=== PATIENT | male | born 1990 ===

== ENCOUNTER → 2025-08-26 09:13 | Outpatient (BNVA) | payer OTHER, SELFPAY | PROVIDERS: Visit Provider Podiatrist Foot & Ankle Surgery | DX: M19.172 Post-traumatic osteoarthritis, left ankle and foot (principal); Q78.8 Other specified osteochondrodysplasias | CPT/HCPCS: 73610; 73630; 99204 ==

== ENCOUNTER 2025-09-17 08:55 | Outpatient (CLI) | payer OTHER, SELFPAY ==
--- NOTE | 2025-09-17 09:15 | USCV_ITS ---
BowerTristen cheng Age: 35 Gender: M : 1990 Exam Date: 09/17/2025 09:42 Ordering Phys: Ramon Hoskins MD Technologist: DANUTA Exam Location: [facility] [place] Indication: heart murmur BP: 138 / 88 HR: 57 Rhythm: Sinus Technical Quality: Adequate MEASUREMENTS (Male / Female) Normal Values 2D ECHO LV Diastolic Diameter PLAX 4.3 cm 4.2 - 5.9 / 3.9 - 5.3 cm IVS Diastolic Thickness 0.6 cm 0.6 - 1.0 / 0.6 - 0.9 cm IVS Systolic Thickness 1.1 cm LVPW Diastolic Thickness 0.5 cm 0.6 - 1.0 / 0.6 - 0.9 cm LVPW Systolic Thickness 1.6 cm LVOT Diameter 2.1 cm LV Ejection Fraction 2D Teich 74.5 % LV Ejection Fraction MOD 4C 73.8 % LV Ejection Fraction MOD 2C 71.8 % LV Ejection Fraction 2C AL 72.3 % LA Diameter 4.0 cm RA Systolic Volume 4C AL 46.7 ml RA Systolic Volume 4C MOD 45.5 ml LA Sys Volume AL 65.3 cm cubed LA Sys Volume Index AL 25.8 cm cubed/m squared Aorta at Sinotubular Diameter 2.4 cm IVC Diameter 1.8 cm M-MODE LA Ao Ratio MM 1.6 AV Cusp Separation MM 2.1 cm DOPPLER AV Peak Velocity 143.0 cm/s LVOT Peak Velocity 89.0 cm/s AV Area Cont Eq vti 2.6 cm squared AV Area Cont Eq pk 2.2 cm squared MV Peak Velocity 102.0 cm/s MV Area PHT 4.3 cm squared Mitral E to A Ratio 1.5 TR Peak Velocity 305.0 cm/s TR Peak Gradient 37.2 mmHg TR Mean Velocity 227.0 cm/s TR Mean Gradient 22.5 mmHg TR Velocity Time Integral 80.2 cm PV Peak Velocity 140.0 cm/s RV Ejection Time 0.4 s FINDINGS Left Ventricle Normal left ventricular size, systolic function and wall thickness with no regional wall motion abnormality. Left ventricular ejection fraction is 72%. Normal left ventricular diastolic function. Right Ventricle Normal right ventricular size and systolic function. Right Atrium Normal right atrial size. Left Atrium Normal left atrial size. IA Septum Normal appearance of the interatrial septum. Mitral Valve Normal mitral valve structure. No mitral valve stenosis or regurgitation. Aortic Valve Normal aortic valve structure. No aortic valve stenosis or regurgitation. Tricuspid Valve Normal tricuspid valve structure. Trace tricuspid valve regurgitation. Normal pulmonary pressure. Pulmonic Valve Normal pulmonic valve structure. No pulmonic valve stenosis or regurgitation. Pericardium No pericardial effusion. Aorta Normal diameter of the aortic root and ascending thoracic aorta. IVC Normal IVC diameter. CONCLUSIONS Normal left ventricular size, systolic function and wall thickness with ejection fraction of 72%. Normal right ventricular size and systolic function. No significant valvular abnormalities. Alpesh Benavidez MD, FACC (Electronically Signed) Final Date: 17 September 2025 15:08 S
== END 2025-09-17 08:56 | disposition home or self-care (01) ==
LOC: RAD 08:58
PROVIDERS: PCP Family Medicine Geriatric Medicine; Visit Provider Family Medicine Geriatric Medicine
DX: R01.1 Cardiac murmur, unspecified (principal)
CPT/HCPCS: 93306